=== PATIENT | female | born 1955 | race Caucasian/White ===

== ENCOUNTER 2016-10-08 13:26 | Outpatient (CLI) | payer MEDICAID ==
[2016-10-08 13:48] LABS: Basophils % (Auto) 0.8 % (0.0-1.8); Eosinophils % (Auto) 1.4 % (0.0-4.3); Hematocrit 32.5 % (30.3-42.9); Hemoglobin 10.1 gm/dl (10.1-14.3); Mean Corpuscular HGB Conc 31 % (30-34); Mean Corpuscular Volume 78 fl (79-97); Platelet Count 465 K/mm3 (140-440); Red Blood Count 4.14 M/mm3 (3.65-5.03); Red Cell Distribution Width 19.5 % (13.2-15.2); White Blood Count 11.8 K/mm3 (4.5-11.0)
[2016-10-08 13:54] LABS: Mean Corpuscular Hemoglobin 24 pg (28-32)
[2016-10-08 14:41] LABS: Alanine Aminotransferase 16 units/L (7-56); Albumin 3.7 g/dL (3.9-5); Albumin/Globulin Ratio 0.6 %; Alkaline Phosphatase 114 units/L (35-129); Anion Gap 20 mmol/L; BUN/Creatinine Ratio 31.42; Blood Urea Nitrogen 22 mg/dL (7-17); Calcium 8.8 mg/dL (8.4-10.2); Carbon Dioxide 22 mmol/L (22-30); Glucose 116 mg/dL (65-100); Potassium 4.5 mmol/L (3.6-5.0); Sodium 133 mmol/L (137-145); Total Protein 9.7 g/dL (6.3-8.2)
== END 2016-10-08 13:27 | disposition home or self-care (01) ==
LOC: LABHHL 13:26
PROVIDERS: ATTEND Surgery
DX: Z45.2 Encounter for adjustment and management of vascular access device (principal); I10 Essential (primary) hypertension; E46 Unspecified protein-calorie malnutrition; M32.9 Systemic lupus erythematosus, unspecified; K63.2 Fistula of intestine
CPT/HCPCS: 36415; 80053; 84134; 85025; 86140

== ENCOUNTER 2016-10-29 12:07 | Outpatient (CLI) | payer MEDICAID ==
[2016-10-29 12:30] LABS: Basophils % (Auto) 0.9 % (0.0-1.8); Eosinophils % (Auto) 1.5 % (0.0-4.3); Hematocrit 28.1 % (30.3-42.9); Hemoglobin 8.7 gm/dl (10.1-14.3); Mean Corpuscular HGB Conc 31 % (30-34); Mean Corpuscular Volume 79 fl (79-97); Platelet Count 172 K/mm3 (140-440); Red Blood Count 3.57 M/mm3 (3.65-5.03); White Blood Count 8.9 K/mm3 (4.5-11.0)
[2016-10-29 12:32] LABS: Mean Corpuscular Hemoglobin 24 pg (28-32); Red Cell Distribution Width 20.1 % (13.2-15.2)
[2016-10-29 12:47] LABS: C-Reactive Protein 0.9 mg/dL (0.00-1.30); Magnesium 2.1 mg/dL (1.7-2.3); Phosphorous 3.6 mg/dL (2.5-4.5); Prealbumin 0.18 g/L (0.200-0.400)
== END 2016-10-29 12:08 | disposition home or self-care (01) ==
LOC: LABHHL 12:07
PROVIDERS: ATTEND Surgery
DX: I10 Essential (primary) hypertension (principal); M32.9 Systemic lupus erythematosus, unspecified; E46 Unspecified protein-calorie malnutrition; Z79.2 Long term (current) use of antibiotics
CPT/HCPCS: 36415; 83735; 84100; 84134; 85025; 86140